=== PATIENT | female | born 1990 | race African-American/Black ===

== ENCOUNTER 2018-01-26 01:22 | Emergency (ER) | payer OTHER ==
[2018-01-26] MEDS: IBUPROFEN 600 MG TABLET. PO (02:15)
== END 2018-01-26 02:17 | disposition home or self-care (01) ==
LOC: ER 01:22
DX: S46.911A Strain of unspecified muscle, fascia and tendon at shoulder and upper arm level, right arm, initial encounter (principal); V43.42XA Person boarding or alighting a car injured in collision with other type car, initial encounter; Y93.89 Activity, other specified; Y99.8 Other external cause status; Y92.488 Other paved roadways as the place of occurrence of the external cause
CPT/HCPCS: 73030; 99284

== ENCOUNTER 2018-04-13 04:30 | Emergency (ER) | payer SELFPAY ==
[~2018-04-13] VITALS: Ht 170.2 cm; Wt 78.5 kg
[~2018-04-13 04:30] MED LIST: depo shot
[2018-04-13 04:40] VITALS: BP 133/87
[2018-04-13] MEDS: PROCHLORPERAZINE 10 MG/2 ML VIAL. IM ONE (04:51)
[2018-04-13] MEDS: KETOROLAC 60 MG/2 ML INJ. IM ONE (04:52)
--- NOTE | 2018-04-14 02:51 | PHYS DOC ---
Past Medical History Past Medical History: No Pertinent History Past Surgical History: No Surgical History Alcohol Use: Occasionally Drug Use: None Adult General Chief Complaint Chief Complaint: HEADACHE HPI HPI Patient is a 27 year old female presenting with headache. She's had this headache since approximately 3 PM while at work he was gradual in onset atrial worse around 5 or 6 PM associated with some photophobia. She has not had any vomiting she took a [place] she slept for several hours the pain felt a lot better and then it came back. She says she has had headaches in the past but not really recently. She does not recall a history of migraine that she knows of. She has had no fever no head trauma this was not a thunderclap headache in other words it gradually became worse it is worse now than it was when it started. No vomiting Review of Systems Review of Systems Constitutional: Denies fever or chills [] Eyes: Denies change in visual acuity, redness, or eye pain [] HENT: Denies nasal congestion or sore throat [] Respiratory: Denies cough or shortness of breath [] Cardiovascular: No additional information not addressed in HPI [] Musculoskeletal: Denies back pain or joint pain [] Integument: Denies rash or skin lesions [] Neurologic: Denies focal weakness or sensory changes [] All other systems were reviewed and found to be within normal limits, except as documented in this note. Current Medications Current Medications Current Medications Medications (Trade) Dose Ordered Sig/[facility] Start Time Stop Time Status Last Admin Dose Admin Ketorolac Tromethamine (Toradol Im) 30 mg 1X ONCE 04/13/18 05:00 04/13/18 05:01 DC 04/13/18 04:52 30 MG Prochlorperazine Edisylate (Compazine) 10 mg 1X ONCE 04/13/18 05:00 04/13/18 05:01 DC 04/13/18 04:51 10 MG Allergies Allergies Allergies Coded Allergies Type Severity Reaction Last Updated Verified No Known Drug Allergies 01/26/18 No Physical Exam Physical Exam Constitutional: Well developed, well nourished, no acute distress, non-toxic appearance. [] HENT: Normocephalic, atraumatic, bilateral external ears normal, oropharynx moist, no oral exudates, nose normal. [] Eyes: PERRLA, EOMI, conjunctiva normal, no discharge. [] Neck: Normal range of motion, no tenderness, supple, no stridor. [] Cardiovascular:Heart rate regular rhythm, no murmur [] Lungs & Thorax: Bilateral breath sounds clear to auscultation [] Abdomen: Bowel sounds normal, soft, no tenderness, no masses, no pulsatile masses. [] Skin: Warm, dry, no erythema, no rash. [] Back: No tenderness, no CVA tenderness. [] Extremities: No tenderness, no cyanosis, no clubbing, ROM intact, no edema. [] Neurologic: Alert and oriented X 3, normal motor function, normal sensory function, no focal deficits noted. []Strength and sensation intact throughout gait is normal speech is normal cranial nerves are intact Psychologic: Affect normal, judgement normal, mood normal. [] Current Patient Data Vital Signs Vital Signs Date Time Temp Pulse Resp B/P (MAP) Pulse Ox O2 Delivery O2 Flow Rate FiO2 04/13/18 04:40 97.4 79 18 133/87 (102) 100 Room Air 97.4 EKG EKG [] Radiology/Procedures Radiology/Procedures [] Course & Med Decision Making Course & Med Decision Making Pertinent Labs and Imaging studies reviewed. (See chart for details) []27-year-old female presenting with headache. She is neurologically intact this was not a thunderclap headache. She is well-appearing neck is supple no head trauma. No indication for imaging at this time I do not suspect subretinal hemorrhage. Patient was given the above treatment while back to check on her she was complaining more about the muscle pain from the shots than the headache. I reassured her. Possibly this could be migraine return precautions were discussed and she was understanding. Dragon Disclaimer Dragon Disclaimer This electronic medical record was generated, in whole or in part, using a voice recognition dictation system. Departure Departure Impression: Primary Impression: Headache Disposition: HOME, SELF-CARE Condition: IMPROVED Patient Instructions: Headache, FAQs SHELBY HANKINS MD Apr 14, 2018 02:51
== END 2018-04-13 05:20 | disposition home or self-care (01) ==
LOC: ER 04:30
DX: R51 Headache (principal)
CPT/HCPCS: 96372; 99284; J0780; J1885

== ENCOUNTER 2018-10-21 21:59 | Emergency (ER) | payer SELFPAY ==
[~2018-10-21] VITALS: Ht 170.2 cm; Wt 78.5 kg
[2018-10-21 23:05] VITALS: BP 115/77
[2018-10-22 00:24] LABS: BILIRUBIN,URINE NEGATIVE (NEG); CLARITY,URINE CLEAR; COLOR,URINE YELLOW; NITRITE,URINE NEGATIVE (NEG); PH,URINE 6.5; PROTEIN,URINE NEGATIVE (NEG-TRACE)
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
[2018-10-22 00:39] LABS: BACTERIA,URINE FEW /HPF (0-FEW); RBC,URINE TNTC /HPF (0-2); SQUAMOUS EPITHELIAL CELL,UR MOD /LPF
[2018-10-22] MEDS ORDERED: fentaNYL PF VIAL 100 MCG/2 ML VIAL IV ONE (01:00)
[2018-10-22 01:18] LABS: BASO # 0.1 x10^3/uL (0.0-0.2); BASO % 1 % (0-3); EOS # 0.3 x10^3/uL (0.0-0.7); EOS % 5 % (0-3); HEMATOCRIT 32.6 % (36.0-47.0); HEMOGLOBIN 10.9 g/dL (12.0-15.5); LYMPH # 2.6 x10^3/uL (1.0-4.8); LYMPH % 52 % (24-48); MEAN CORPUSCULAR HEMOGLOBIN 29 pg (25-35); MEAN CORPUSCULAR HGB CONC 33 g/dL (31-37); MEAN CORPUSCULAR VOLUME 86 fL (79-100); MONO # 0.4 x10^3/uL (0.0-1.1); MONO % 9 % (0-9); NEUT # 1.7 x10^3uL (1.8-7.7); NEUT % 34 % (31-73); PLATELET COUNT 187 x10^3/uL (140-400); RED CELL DISTRIBUTION WIDTH 13.5 % (11.5-14.5)
[2018-10-22 01:49] LABS: CALCIUM 8.7 mg/dL (8.5-10.1); CREATININE 0.9 mg/dL (0.6-1.0); GFR 90.2; POTASSIUM 3.5 mmol/L (3.5-5.1)
[2018-10-22 01:56] LABS: ALBUMIN 3.8 g/dL (3.4-5.0); TOTAL BILIRUBIN 0.3 mg/dL (0.2-1.0); TOTAL PROTEIN 7.7 g/dL (6.4-8.2)
[2018-10-22] MEDS ORDERED: CONTRAST GIVEN. MC PRN (02:45)
[2018-10-22] MEDS ORDERED: IOHEXOL 300 MG/ML 100ML VIAL. IV ONE (02:45)
--- NOTE | 2018-10-22 03:23 | RAD ---
CT scan of the abdomen and pelvis with contrast 10/22/2018 CLINICAL HISTORY: Trauma with pelvic pain. TECHNIQUE: After the intravenous administration of 75 cc of Omnipaque 300 only, contiguous, 5 mm axial sections were obtained through abdomen and pelvis. One or more of the following individualized dose reduction techniques were utilized for this study: 1. Automated exposure control. 2. Adjustment of the mA and/or kV according to patient size. 3. Use of iterative reconstruction technique. FINDINGS: Images through the lung bases demonstrate minimal dependent subsegmental atelectasis bilaterally. The liver, spleen, pancreas, adrenal glands and kidneys are within normal limits. The abdominal aorta tapers normally. The gallbladder is contracted. No free fluid or free air is seen within the abdomen. Surgical changes are seen involving the anterior abdominal wall. There is no evidence of bowel obstruction. The appendix is partially visualized and is within normal limits. Images through the pelvis demonstrate the urinary bladder distended with urine. A punctate calcification is seen within the left pelvis consistent with a phlebolith. A rounded 2.5 cm low-attenuation lesion is seen involving the left adnexa. This likely represents a left ovarian cyst. No free fluid is seen. No pelvic hematoma is noted. Minimal S-shaped curvature of the thoracolumbar spine is seen. The osseous structures are grossly intact. IMPRESSION: 1. 2.5 cm probable left ovarian cyst. 2. No additional acute abnormality is seen. Electronically signed by: Torsten Lane MD (10/22/2018 3:20 AM) [id number]
== END 2018-10-22 03:47 | disposition home or self-care (01) ==
LOC: ER 10-22 00:58
DX: N83.202 Unspecified ovarian cyst, left side (principal); R31.9 Hematuria, unspecified; V43.52XA Car driver injured in collision with other type car in traffic accident, initial encounter; Y93.89 Activity, other specified; Y92.410 Unspecified street and highway as the place of occurrence of the external cause; Y99.8 Other external cause status
CPT/HCPCS: 36415; 74177; 80053; 81001; 81025; 85025; 87086; 96374; 99284; J3010; Q9967